=== PATIENT | male | born 1960 | race Caucasian/White ===

== ENCOUNTER → 2020-04-15 | Outpatient (CLI) | payer OTHER ==
[~2020-04-15] MED LIST: ACIDOPHILUS PR1 EACH PO; ATOR40TA; CEPH500 PO; CLON.5; CLON1; DULO30; DULO30 PO; DULO60; DULO60 PO; DULOXETINE HCL40 M1 PO; ESCI20 PO; FINA5; FINA5 PO; FISH OIL 1,0001 EAC1 PO; GABA300; GABA300 PO; IBUP800 PO; LAMO100; LAMO100 PO; LATA.005SO BOTHEYES; LATANOPROST2.5 ML; LEVO-T75 MCG PO; LEVSOD100; LEVSOD88 PO; Metamucil Smooth1 EA PO; NAPR375 PO; OXYACE5T PO; PRAV20 PO; PRAZ2; PRAZ2 PO; PROM25 PO; RXOXYACE PO; Revatio20 MG PO; VITAMIN D310 MC4 PO; Xalatan2.5 ML
[2020-04-15 10:51] LABS: Anion Gap 10 mmol/L (6-16); Blood Urea Nitrogen 13 mg/dL (8-24); Bun/Creatinine Ratio 12.4 (12.0-20.0); CO2, Blood 27 mmol/L (21-32); Calcium, Blood 9.3 mg/dL (8.5-10.1); Chloride, Blood 105 mmol/L (98-108); Creatinine, Blood 1.05 mg/dL (0.60-1.20); Glomerular Filtration Rate >60 (60-); Glucose, Blood 101 mg/dL (70-99); Potassium, Blood 4.2 mmol/L (3.5-5.5); Sodium, Blood 142 mmol/L (136-145)
== END | disposition home or self-care (01) ==
LOC: PLD 10:44 → LAB SHORT 10:44
PROVIDERS: Physician Assistant Surgical
DX: K40.90 Unilateral inguinal hernia, without obstruction or gangrene, not specified as recurrent (principal)
CPT/HCPCS: 80048

== ENCOUNTER 2020-07-31 05:55 | Day surgery (SDC) | payer OTHER ==
[~2020-07-31] VITALS: Ht 165.1 cm; Wt 79.0 kg
--- NOTE | 2020-07-31 12:45 | NUR ---
PLEASANT VISITS WITH ME ABOUT HIS CATS AND ASKING ABOUT SURGERY . DOES NOT OFFER ANY COMPLAINT UNTIL I I ASK HIM ABOUT PAIN HE STATS EIGHT WHEN I SHOWED HIM THE FACE SCALE HE STATES 9 DID SAY TO ME " GET ME WASTED" HE IS USING 4 L N/C O2 TO KEEP BIOX ABOVE 90 I EXPLAINED TO HIM DEEP BREATHING AND COUGH AND THE IMPORTANCE OF THIS
--- NOTE | 2020-07-31 14:02 | NUR ---
PT NOTIFIED ORIGNAL SUPPORT PERSON RIDE HOME WAS ALMOST OFF THE CLOCK AND NEXT WORKER WOULD BE PICKING HIM UP. PT STATED "I DO NOT WANT TO LEAVE WITH THE OTHER MEDICAL OFFICE SPECIALIST, CAN I STAY HERE? I WILL REFUSE TO LEAVE WITH HER" PT INSISTED ON GETTING DRESSED AND LEAVING WITH ORIGINAL PERSONAL BEFORE SHE CLOCKED OFF WORK. Patient up to Ambulate independently. Gait steady. Discharge instructions reviewed with patient. Patient verbalizes understanding. Copy given to patient to take home.ABDOMINAL BINDER IN PLACE WITH GAUZE DRESSING CDI.ROOM AIR. PT REPORTS PAIN DECREASED TO 6/10 UPON DISCHARGE. Discharged via wheelchair to private car for ride home WITH SUPPORT PERSON. PRESCRIPTION MEDICATION IN DISCHARGE PACKET. NOTIFIED SUPPORT PERSON THAT IT WOULD NEED TO BE HAND DELIVERED TO PREFERED PHARMACY.
== END 2020-07-31 13:50 | disposition home or self-care (01) ==
LOC: ORSCMMR 05:55 → ORD 10:30 → ORSCMMR 10:30
PROVIDERS: Surgery
PROC: 0WUF4JZ Supplement Abdominal Wall with Synthetic Substitute, Percutaneous Endoscopic Approach (ICD-10-PCS; principal; 2020-07-31 07:30)
PROC: 0YUA4JZ Supplement Bilateral Inguinal Region with Synthetic Substitute, Percutaneous Endoscopic Approach (ICD-10-PCS; principal; 2020-07-31 07:30)
PROC: 8E0W4CZ Robotic Assisted Procedure of Trunk Region, Percutaneous Endoscopic Approach (ICD-10-PCS; principal; 2020-07-31 07:30)
DX: K40.20 Bilateral inguinal hernia, without obstruction or gangrene, not specified as recurrent (principal); K43.2 Incisional hernia without obstruction or gangrene; I10 Essential (primary) hypertension; F31.9 Bipolar disorder, unspecified; F84.5 Asperger's syndrome; Z79.899 Other long term (current) drug therapy
CPT/HCPCS: 49650; 49656; S2900; A9270; C1781; J0690; J1100; J2250; J2370; J2405; J2704; J3010; J7120

== ENCOUNTER → 2022-04-29 | Outpatient (CLI) | payer OTHER ==
[2022-04-29 10:59] LABS: Cholesterol 196 mg/dL (50-200); HDL Cholesterol 39 mg/dL (>39); LDL/HDL RATIO 3.5; Low Density Lipoprotein Chol 138 mg/dL (0-110); Thyroid Stimulating Hormone 0.164 uIU/mL (0.360-4.800); Triglycerides 93 mg/dL (30-160); Very Low Density Lipoprot Chol 18 mg/dL (6-32)
== END | disposition home or self-care (01) ==
LOC: LAB SHORT 09:53 → LAB 09:53
PROVIDERS: Family Medicine
DX: E78.5 Hyperlipidemia, unspecified (principal); E03.9 Hypothyroidism, unspecified
CPT/HCPCS: 80061; 83036; 84443

== ENCOUNTER 2022-07-13 09:06 | Day surgery (SDC) | payer OTHER ==
[~2022-07-13] VITALS: Ht 165.1 cm; Wt 77.7 kg
[2022-07-13] VITALS (21 sets, daily range): BP systolic 106–143; BP diastolic 74–100
[~2022-07-13 09:06] MED LIST changes: +CYMBALTA60 M1 PO; +LEVOTHYROXINE75 MC9 PO
[2022-07-13] MEDS ORDERED: ROSUVASTATIN CAL5 MG PO (09:52)
[2022-07-13] MEDS ORDERED: PRAZ2 PO (09:54)
[2022-07-13] MEDS ORDERED: FINA5 PO (09:55)
--- NOTE | 2022-07-13 10:14 | NUR ---
Ambulatory in Day Surgery. Pre-Op teaching done. Pt verbalizes understanding. Patient confirms NPO status and agrees with scheduled surgery. Patient States Post-Procedure ride home has been arranged. Lungs clear T/O to Auscultation. Patient states colon prep results "mostly clear yellow with some brown." Fleet enema completed in SDS, patient administered. Dr. Green notified.
--- NOTE | 2022-07-13 10:36 | NUR ---
07/13/22 Erin Veliz HISTORY, CHART, MEDICATIONS AND ALLERGIES REVIEWED BEFORE START OF PROCEDURE. PATIENT CONFIRMS NPO STATUS AND AGREES WITH SCHEDULED PROCEDURE. 3-LEAD EKG REVIEWED WITH PHYSICIAN PRIOR TO START OF PROCEDURE. MONITOR INTACT WITH CONTINUOUS PULSE OXIMETRY,CAPNOGRAPHY, 3-LEAD EKG, INTERMITTENT BP. SUPPLEMENTAL O2 TO BE TITRATED THROUGHOUT PROCEDURE TO MAINTAIN O2 SATURATION ABOVE 90%. PATIENT DETERMINED TO BE ASA APPROPRIATE FOR PROPOFOL SEDATION PRIOR TO START OF PROCEDURE BY .
--- NOTE | 2022-07-13 12:09 | NUR ---
Patient up to Ambulate independently. Gait steady. Discharge instructions reviewed with patient. Patient verbalizes understanding. Copy given to patient to take home. Patient States Post-Procedure ride home has been arranged. Discharged via wheelchair to private car for ride home.
== END 2022-07-13 12:02 | disposition home or self-care (01) ==
LOC: ORSCMMR 09:06 → ORD 10:30 → ORSCMMR 12:02
PROVIDERS: Internal Medicine Gastroenterology
PROC: 0DBL8ZX Excision of Transverse Colon, Via Natural or Artificial Opening Endoscopic, Diagnostic (ICD-10-PCS; principal; 2022-07-13 10:30)
PROC: 0DBM8ZX Excision of Descending Colon, Via Natural or Artificial Opening Endoscopic, Diagnostic (ICD-10-PCS; principal; 2022-07-13 10:30)
DX: R10.32 Left lower quadrant pain (principal); Z86.010 Personal history of colon polyps; R93.3 Abnormal findings on diagnostic imaging of other parts of digestive tract; D12.4 Benign neoplasm of descending colon; K63.5 Polyp of colon; E03.9 Hypothyroidism, unspecified; E78.00 Pure hypercholesterolemia, unspecified; F32.A Depression, unspecified; N40.0 Benign prostatic hyperplasia without lower urinary tract symptoms; Z79.899 Other long term (current) drug therapy
CPT/HCPCS: 88305; A9270; J0461; J2250; J2704; J7120